=== PATIENT | female | born 1965 | race Hispanic/Latino ===

== ENCOUNTER 2017-05-15 20:12 | Emergency (ER) | payer SELFPAY ==
[~2017-05-15] VITALS: Ht 149.9 cm; Wt 49.9 kg
[~2017-05-15 20:12] MED LIST: BENTYL10 MG PO; CIPRO500 MG PO; FLAGYL500 MG PO; NORCO 5-325 TA1 EACH PO
--- NOTE | 2017-05-15 20:49 | Diagnostic Imaging Report ---
EXAMINATION: CHEST 2 VIEWS INDICATION: \S\cough, chest pain \[id number] \S\2032 \S\Y COMPARISON: None FINDINGS: PA and lateral views TUBES and LINES: None. LUNGS: Lungs are well inflated. There is no evidence of pneumonia or pulmonary edema. PLEURA: No pleural effusion or pneumothorax. HEART AND MEDIASTINUM: The cardiomediastinal silhouette is unremarkable. BONES AND SOFT TISSUES: No acute osseous lesion. Old left sixth rib fracture. Soft tissues are unremarkable. UPPER ABDOMEN: No free air under the diaphragm. IMPRESSION: No acute thoracic abnormality. Signed by: DR. Beto Euceda MD on 05/15/2017 8:45 PM
[2017-05-15 21:08] VITALS: BP 120/76
== END 2017-05-15 21:11 | disposition home or self-care (01) ==
LOC: ER 20:12
DX: R07.89 Other chest pain (principal); J20.9 Acute bronchitis, unspecified; F17.210 Nicotine dependence, cigarettes, uncomplicated
CPT/HCPCS: 71046; 93005; 99283

== ENCOUNTER 2019-12-19 22:49 | Emergency (ER) | payer SELFPAY ==
[~2019-12-19] VITALS: Ht 149.9 cm; Wt 49.9 kg
--- NOTE | 2019-12-19 22:53 | Emergency Department Note ---
History of Present Illnes History of Present Illness Chief Complaint: Abdominal Complaints History of Present Illness This is a 54 year old female presents to the ED for epigastric pain with n/v . Historian: Patient Arrival Mode: Car Onset (how long ago): day(s) Radiation: Reports non-radiation Severity: moderate Onset quality: gradual Duration (how long): day(s) Timing of current episode: constant Progression: worsening Chronicity: new Context: Reports recent illness Relieving factors: none Exacerbating factors: none Associated symptoms: Reports nausea/vomiting Treatments prior to arrival: none Past Medical/Family History Physician Review I have reviewed the patient's past medical and family history. Any updates have been documented here. Past Medical History Recent Fever: No Clinical Suspicion of Infectio: No Other Medical History: CHRONIC BACK PAIN Other Surgery: X3 Social History Smoking Cessation: Never Smoker Alcohol Use: None Any Illegal Drug Use: No Other Last Tetanus: UNKNOWN Review of Systems Review of Systems Constitutional: Reports no symptoms EENTM: Reports no symptoms Cardiovascular: Reports no symptoms Respiratory: Reports no symptoms Gastrointestinal: Reports abdominal pain, Reports nausea Genitourinary: Reports no symptoms Musculoskeletal: Reports no symptoms Integumentary: Reports no symptoms Neurological: Reports no symptoms Psychological: Reports no symptoms Endocrine: Reports no symptoms Hematological/Lymphatic: Reports no symptoms Physical Exam Related Data Allergies: Coded Allergies: No Known Allergies (Unverified , 11/20/12) Triage Vital Signs Vital Signs Date Time Temp Pulse Resp B/P (MAP) Pulse Ox O2 Delivery O2 Flow Rate FiO2 12/19/19 22:51 98.0 83 20 137/99 98 Room Air Vital signs reviewed: Yes Physical Exam CONSTITUTIONAL Constitutional: Present well-developed, Present well-nourished, Present ill appearing HENT HENT: Present normocephalic, Present atraumatic, Present oropharynx clear/moist, Present nose normal HENT L/R: Present left ext ear normal, Present right ext ear normal EYES Eyes: Reports PERRL, Reports conjunctivae normal NECK Neck: Present ROM normal PULMONARY Pulmonary: Present effort normal, Present breath sounds normal CARDIOVASCULAR Cardiovascular: Present regular rhythm, Present heart sounds normal, Present capillary refill normal, Present normal rate GASTROINTESTINAL Abdominal: Present soft, Present tender (epigastric) GENITOURINARY Genitourinary: Present exam deferred SKIN Skin: Present warm, Present dry MUSCULOSKELETAL Musculoskeletal: Present ROM normal NEUROLOGICAL Neurological: Present alert, Present oriented x 3, Present no gross motor or sensory deficits PSYCHOLOGICAL Psychological: Present mood/affect normal, Present judgement normal Results Laboratory Lab results reviewed: Yes Laboratory comments Laboratory Tests Test 12/20/19 00:43 12/19/19 23:00 12/19/19 22:59 Urine Test Negative (NEGATIVE) White Blood Count 12.80 x10e3/uL (4.8-10.8) Red Blood Count 4.96 x10e6/uL (3.6-5.1) Hemoglobin 15.7 g/dL (12.0-16.0) Hematocrit 45.8 % (34.2-44.1) Mean Corpuscular Volume 92.3 fL (81-99) Mean Corpuscular Hemoglobin 31.7 pg (28-32) Mean Corpuscular Hemoglobin Concent 34.3 g/dL (31-35) Red Cell Distribution Width 13.7 % (11.7-14.4) Platelet Count 359 x10e3/uL (140-360) Neutrophils (%) (Auto) 82.3 % (38.7-80.0) Lymphocytes (%) (Auto) 12.7 % (18.0-39.1) Monocytes (%) (Auto) 3.9 % (4.4-11.3) Eosinophils (%) (Auto) 0.2 % (0.0-6.0) Basophils (%) (Auto) 0.4 % (0.0-1.0) Neutrophils # (Auto) 10.6 (2.1-6.9) Lymphocytes # (Auto) 1.6 (1.0-3.2) Monocytes # (Auto) 0.5 (0.2-0.8) Eosinophils # (Auto) 0.0 (0.0-0.4) Basophils # (Auto) 0.1 (0.0-0.1) Absolute Immature Granulocyte (auto 0.06 x10e3/uL (0-0.1) Sodium Level 140 mmol/L (136-145) Potassium Level 4.1 mmol/L (3.5-5.1) Chloride Level 102 mmol/L (98-107) Carbon Dioxide Level 19 mmol/L (22-29) Anion Gap 23.1 mmol/L (8-16) Blood Urea Nitrogen 9 mg/dL (7-26) Creatinine 0.81 mg/dL (0.57-1.11) Estimat Glomerular Filtration Rate > 60 ML/MIN (60-) BUN/Creatinine Ratio 11 (6-25) Glucose Level 130 mg/dL (74-118) Calcium Level 9.5 mg/dL (8.4-10.2) Total Bilirubin 0.7 mg/dL (0.2-1.2) Aspartate Amino Transf (AST/SGOT) 19 IU/L (5-34) Alanine Aminotransferase (ALT/SGPT) 13 IU/L (0-55) Alkaline Phosphatase 79 IU/L (40-150) Creatine Kinase 41 IU/L (29-168) Creatine Kinase MB 0.80 ng/mL (0-5.0) Troponin I 0.021 ng/mL (0-0.300) Total Protein 8.7 g/dL (6.5-8.1) Albumin 5.1 g/dL (3.5-5.0) Globulin 3.6 g/dL (2.3-3.5) Albumin/Globulin Ratio 1.4 (0.8-2.0) Lipase 9 U/L (8-78) Ethyl Alcohol Level < 10.0 mg/dL (0.0-10.0) Urine Color Alise (YELLOW) Urine Clarity Cloudy (CLEAR) Urine pH >=9 (5 - 7) Urine Specific Cameron 1.020 (1.010-1.025) Urine Protein 2+ (NEGATIVE) Urine Glucose (UA) Negative (NEGATIVE) Urine Ketones 2+ (NEGATIVE) Urine Blood 4+ (NEGATIVE) Urine Nitrite Negative (NEGATIVE) Urine Bilirubin Small (NEGATIVE) Urine Urobilinogen 1 mg/dL (0.2 - 1) Urine Leukocyte Esterase Negative (NEGATIVE) Urine RBC 21-50 /HPF (0-5) Urine WBC 6-10 /HPF (0-5) Urine Epithelial Cells Few /LPF (NONE) Urine Bacteria Many /HPF (NONE) Urine Mucus Many (RARE) Urine Opiates Screen Positive (NEGATIVE) Urine Methadone Screen Negative (NEGATIVE) Urine Barbiturates Screen Negative (NEGATIVE) Urine Phencyclidine Screen Negative (NEGATIVE) Urine Amphetamines Screen Negative (NEGATIVE) Urine Methamphetamines Screen Negative (NEGATIVE) Urine Benzodiazepines Screen Negative (NEGATIVE) Urine Cocaine Screen Negative (NEGATIVE) Urine Cannabinoids Screen Positive (NEGATIVE) Imaging Imaging results reviewed: Yes Impressions [place] [address] Patient Name: TRACE RIVERA MR #: [id number] : 1965 Age/Sex: 54/F Req #: [id number] Adm Physician: Ordered by: EDWARD KHAN DO Report #: [id number] Location: ER Room/Bed: Procedure: CT/CT ABDOMEN/PELVIS W Exam Date: Exam Time: REPORT STATUS: Signed EXAM: CT Abdomen and Pelvis WITH contrast INDICATION: Epigastric pain COMPARISON: None. TECHNIQUE: Abdomen and pelvis were scanned utilizing a multidetector helical scanner from the lung base to the pubic symphysis after administration of IV contrast. Coronal and sagittal reformations were obtained. Routine protocol was performed. Scan was performed when during portal venous phase. IV CONTRAST: 100 mL of Isovue 370 ORAL CONTRAST: None COMPLICATIONS: None RADIATION DOSE: Total DLP: 153 mGy*cm Estimated effective dose: (DLP x 0.015 x size factor) mSv CTDIvol has been reviewed. It is below the limits set by the Radiation Protocol Committee (RPC). Dose modulation, iterative reconstruction, and/or weight based adjustment of the mA/kV was utilized to reduce the radiation dose to as low as reasonably achievable. FINDINGS: LINES and TUBES: None. LOWER THORAX: Unremarkable HEPATOBILIARY: No focal hepatic lesions. No biliary ductal dilation. GALLBLADDER: No radio-opaque stones or sludge. No wall thickening. SPLEEN: No splenomegaly. PANCREAS: No focal masses or ductal dilatation. ADRENALS: No adrenal nodules KIDNEYS/URETERS: Kidneys enhance symmetrically. No hydronephrosis. No cystic or solid mass lesions. No stones. GI TRACT: No abnormal distention or evidence of bowel obstruction. Mild colonic wall thickening, submucosal mucosal edema and mucosal hyperenhancement in the right and mid colon. Appendix is normal. PELVIC ORGANS/BLADDER: Unremarkable. LYMPH NODES: No lymphadenopathy. VESSELS: Arterial calcifications. PERITONEUM / RETROPERITONEUM: No free air or fluid. BONES: Degenerative changes. SOFT TISSUES: Unremarkable. IMPRESSION: Subtle findings suggestive of colitis. Signed by: Sherwin Holloway DO on 12/20/2019 1:29 AM Dictated By: SHERWIN HOLLOWAY DO 8 Transcribed By: STACEY on 12/20/19128 COPY TO: EDWARD KHAN DO~ Procedures 12 Lead ECG Interpretation ECG Interpretation : ECG: ECG 1 Occupational Medicine Specialist: Interpreted by ED physician Date: Dec 19, 2019 Time: 23:08 Prior ECG tracings: reviewed Rhythm: sinus rhythm Ectopy: PJC's Rate: normal BPM: 57 QRS axis: normal ST segments normal: Yes T waves normal: Yes Clinical Impression: normal ECG Assessment & Plan Medical Decision Making MDM Diff Dx : colitis, appendicitis, ischemic bowel, SBO, billiary pathology, perforated viscus, UTI , pyelonephritis, kidney stone, ACS Assessment & Plan Final Impression: (1) Colitis Depart Disposition: HOME, SELF-CARE EDWARD KHAN DO Dec 19, 2019 22:53
[2019-12-19] MEDS ORDERED: SODIUM CHLORIDE 0.9% 1000ML 1,000 ML IV STA (22:54)
[2019-12-19] MEDS ORDERED: ONDANSETRON HCL INJ 2MG/ML 2ML 2 MG/ML VIAL IV STA (23:03)
[2019-12-19] MEDS ORDERED: FAMOTIDINE 20 MG/2 ML VIAL IV STA (23:03)
[2019-12-19 23:14] LABS: BASOPHILS # (AUTO) 0.1 (0.0-0.1); BASOPHILS % 0.4 % (0.0-1.0); EOSINOPHILS % 0.2 % (0.0-6.0); HEMATOCRIT 45.8 % (34.2-44.1); HEMOGLOBIN 15.7 g/dL (12.0-16.0); LYMPHOCYTES # (AUTO) 1.6 (1.0-3.2); LYMPHOCYTES % 12.7 % (18.0-39.1); MEAN CORPUSCULAR HEMOGLOBIN 31.7 pg (28-32); MEAN CORPUSCULAR HGB CONC 34.3 g/dL (31-35); MEAN CORPUSCULAR VOLUME 92.3 fL (81-99); MONOCYTES # (AUTO) 0.5 (0.2-0.8); MONOCYTES % 3.9 % (4.4-11.3); NEUTROPHILS # (AUTO) 10.6 (2.1-6.9); NEUTROPHILS % 82.3 % (38.7-80.0); PLATELET COUNT 359 x10e3/uL (140-360); RED BLOOD COUNT 4.96 x10e6/uL (3.6-5.1); RED CELL DISTRIBUTION WIDTH 13.7 % (11.7-14.4)
[2019-12-19 23:19] LABS: AMPHETAMINES SCREEN,URINE NEGATIVE (NEGATIVE); BENZODIAZEPINES SCREEN,URINE NEGATIVE (NEGATIVE); PHENCYCLIDINE SCREEN,URINE NEGATIVE (NEGATIVE)
[2019-12-19 23:33] LABS: LIPASE 9 U/L (8-78)
[2019-12-19 23:35] LABS: ALANINE AMINOTRANSFERASE 13 IU/L (0-55); ALBUMIN 5.1 g/dL (3.5-5.0); ALBUMIN/GLOBULIN RATIO 1.4 (0.8-2.0); ALKALINE PHOSPHATASE 79 IU/L (40-150); ANION GAP 23.1 mmol/L (8-16); BLOOD UREA NITROGEN 9 mg/dL (7-26); BUN/CREATININE RATIO 11 (6-25); CALCIUM 9.5 mg/dL (8.4-10.2); CARBON DIOXIDE 19 mmol/L (22-29); CHLORIDE 102 mmol/L (98-107); CREATINE KINASE 41 IU/L (29-168); CREATININE, SERUM 0.81 mg/dL (0.57-1.11); EST GLOMERULAR FILTRATION RATE > 60 ML/MIN (60-); GLUCOSE 130 mg/dL (74-118); POTASSIUM 4.1 mmol/L (3.5-5.1); SODIUM 140 mmol/L (136-145)
--- OUTSIDE RECORDS SUMMARY | 2019-12-19 23:45 | XMS REPORT | Continuity of Care Document ---
Author Author [facility] t Organization [facility] Address [address] [place] [address] Phone Unavailable Care Team Providers Care Stonework Supervisor Name Role Phone NO, PCP PCP Unavailable Mckinley MARYphyraghu Unavailable Payers Payer Name Policy Type Policy Number Effective Date Expiration Date S ource Problems This patient has no known problems. Allergies, Adverse Reactions, Alerts Allergy Name Allergy Type Status Severity Reaction(s) Onset Date Inacti ve Date Treating Clinician Comments Source No Known Allergies DA Active U 2019-08-14 00:00:00 [facility] No Known Allergies DA Active U 2014-01-14 00:00:00 [facility] Medications Ordered Medication Name Filled Medication Name Start Date Stop Da te Current Medication? Ordering Clinician Indication Dosage Frequency Signature (SIG) Comments Components Source Ciprofloxacin Hcl (Cipro) 500 Mg Tablet, 500 Mg Oral C iprofloxacin Hcl (Cipro) 500 Mg Tablet, 500 Mg Oral 2013-03-23 00:00:00 No 500 Twice A Day [facility] Dicyclomine Hcl (Bentyl) 10 Mg Capsule, 10 Mg Oral Dic yclomine Hcl (Bentyl) 10 Mg Capsule, 10 Mg Oral 2013-03-23 00:00:00 No 10 Every 6 Hours as needed [facility] Hydrocodone Bit/Acetaminophen (Cal[place]oun 5-3 25 Tablet) 1 Each Tablet, 5 - 325 Mg Oral Hydrocodone Bit/Acetaminophen (Calhoun 5-3 25 Tablet) 1 Each Tablet, 5 - 325 Mg Oral 2013-03-23 00:00:00 No 5 Every 6 Hours as needed [facility] Metronidazole (Flagyl) 500 Mg Tablet, 500 Mg Oral Metr onidazole (Flagyl) 500 Mg Tablet, 500 Mg Oral 2013-03-23 00:00:00 No 500 Thre e Times A Day [facility] Procedures Procedure Date / Time Performed Performing Clinician [facility] e X-ray of chest, two views 2017-05-15 00:00:00 BETTE MARY [facility] Encounters Start Date/Time End Date/Time Encounter Type Admission Type Attendi [facility] Care Department Encounter ID Source 2017-05-15 20:12:00 2017-05-15 21:11:00 Departed Emergency Room ER POLO MARY [facility] [id number] [facility] Results Test Description Test Time Test Comments Results Result Comments Source - XR KNEE 3 V LT 2019-08-14 19:32:00 FAX: Facundo Abreu NP [phone] [place]: St: REG -- Name: TRACE RIVERA [facility] : 1965 Age/S: 54/F [address] [facility] Unit #: [id number] Loc: [place] [address] Phys: Facundo Abreu [employer] Acct: [id number] Dis Date: Status: REG ER PHONE #: [phone] Exam Date: 08/14/2019 1907 FAX #: [phone] Reason: FALL EXAMS: CPT CODE: [id number] XR KNEE 3 [place] [address] EXAM: Left femur, 4 views and left knee, 3 views; INFORMATION: Trauma; pain after fall 3 weeks ago; FINDINGS: Normal shape and structure of the imaged bones; no evidence of fracture or dislocation; no soft tissue abnormalities. IMPRESSION: No evidence of acute osseous trauma or other pathological changes. No radiopaque foreign body. Location code: [facility] at 1932 Reported and signed by: Raphael Stone M.D. CC: Facundo Abreu NP Technologist: KIRTI [place] Date/Time/By: 08/14/2019 (1931) : By: ChanelleGRW Orig Print D/T: S: 08/14/2019 (1934) PAGE 1 Signed Report - XR FEMUR MIN 2 VWS LT 2019-08-14 19:32:00 FAX : Facundo Abreu NP [phone] [place]: St: REG -- Name: TRACE RIVERA [facility] : 1965 Age/S: 54/F [address] [facility] Unit #: [id number] Loc: [place] [address] Phys: Facundo Abreu NP Acct: [id number] Dis Date: Status: [facility] PHONE #: [phone] Exam Date: 08/14/20191909 FAX #: [phone] Reason: FALL EXAMS: CPT CODE: [id number] XR FEMUR MIN [address] [place] [address] EXAM: Left femur, 4 views and left knee, 3 views; INFORMATION: Trauma; pain after fall 3 weeks ago; FINDINGS: Normal shape and structure of the imaged bones; no evidence of fracture or dislocation; no soft tissue abnormalities. IMPRESSION: No evidence of acute osseous trauma or other pathological changes. No radiopaque foreign body. Location code: [facility] at 1932 Reported and signed by: Raphael Stone M.D. CC: Facundo Abreu NP Technologist: KIRTI Milliganscrd Date/Time/By: 08/14/2019 (1931) : By: ChanelleGRW Orig Print D/T: S: 08/14/2019 (1934) PAGE 1 Signed Report CHEST 2 VIEWS [facility] [address] [place] [address] Patient Name: TRACE RIVERA MR #: [id number] : 1965 Age/Sex: 52/F Req #: [id number] Adm Physician: Ordered by: POLO MARY MD Report #: [id number] Location: ER Room/Bed: Procedure: [id number] DX/CHEST 2 VIEWS Exam Date: 05/15/17 Exam Time: 2032 REPORT STATUS: Signed EXAMINATION: CHEST 2 VIEWS INDICATION: COMPARISON: None FINDINGS: PA and lateral views TUBES and LINES: None. LUNGS: Lungs are well inflated. There is no evidence of pneumonia or pulmonary edema. PLEURA: No pleural effusion or pneumothorax. HEART AND MEDIASTINUM: The cardiomediastinal silhouette is unremarkable. BONES AND SOFT TISSUES: No acute osseous lesion. Old left sixth rib fracture. Soft tissues are unremarkable. UPPER ABDOMEN: No free air under the diaphragm. IMPRESSION: No acute thoracic abnormality. Signed by: DR. Beto Brewer MD on 05/15/2017 8:45 PM Dictated By: BETO BREWER MD 44 Transcribed By: STACEY on 05/15/172044 COPY TO: POLO MARY MD
[2019-12-20] MEDS ORDERED: PROMETHAZINE 12.5MG/ NACL 0.9% 12.5 MG/50 ML BAG IV ONE
[2019-12-20] MEDS ORDERED: IOPAMIDOL 370 MG/ML 200 ML INFUS..BTL INJ ONE (00:16)
[2019-12-20] MEDS ORDERED: SODIUM CHLORIDE 0.9% 50ML 50 ML ONE (00:17)
[2019-12-20 00:53] LABS: CLARITY,URINE CLOUDY (CLEAR); COLOR,URINE AMBER (YELLOW); LEUKOCYTE ESTERASE ,URINE NEGATIVE (NEGATIVE); NITRITE,URINE NEGATIVE (NEGATIVE)
[2019-12-20 00:54] LABS: BILIRUBIN,URINE SMALL (NEGATIVE); KETONES,URINE 2+ (NEGATIVE); PROTEIN,URINE DIPSTICK 2+ (NEGATIVE); URINE UROBILINOGEN 1 mg/dL (0.2 - 1)
[2019-12-20 01:07] LABS: BACTERIA,URINE MANY /HPF; EPITHELIAL CELLS,URINE FEW /LPF; RBC,URINE 21-50 /HPF (0-5)
[2019-12-20 01:08] LABS: MUCUS,URINE MANY (RARE)
--- NOTE | 2019-12-20 01:32 | Diagnostic Imaging Report ---
EXAM: CT Abdomen and Pelvis WITH contrast INDICATION: Epigastric pain COMPARISON: None. TECHNIQUE: Abdomen and pelvis were scanned utilizing a multidetector helical scanner from the lung base to the pubic symphysis after administration of IV contrast. Coronal and sagittal reformations were obtained. Routine protocol was performed. Scan was performed when during portal venous phase. IV CONTRAST: 100 mL of Isovue 370 ORAL CONTRAST: None COMPLICATIONS: None RADIATION DOSE: Total DLP: 153 mGy*cm Estimated effective dose: (DLP x 0.015 x size factor) mSv CTDIvol has been reviewed. It is below the limits set by the Radiation Protocol Committee (RPC). Dose modulation, iterative reconstruction, and/or weight based adjustment of the mA/kV was utilized to reduce the radiation dose to as low as reasonably achievable. FINDINGS: LINES and TUBES: None. LOWER THORAX: Unremarkable HEPATOBILIARY: No focal hepatic lesions. No biliary ductal dilation. GALLBLADDER: No radio-opaque stones or sludge. No wall thickening. SPLEEN: No splenomegaly. PANCREAS: No focal masses or ductal dilatation. ADRENALS: No adrenal nodules KIDNEYS/URETERS: Kidneys enhance symmetrically. No hydronephrosis. No cystic or solid mass lesions. No stones. GI TRACT: No abnormal distention or evidence of bowel obstruction. Mild colonic wall thickening, submucosal mucosal edema and mucosal hyperenhancement in the right and mid colon. Appendix is normal. PELVIC ORGANS/BLADDER: Unremarkable. LYMPH NODES: No lymphadenopathy. VESSELS: Arterial calcifications. PERITONEUM / RETROPERITONEUM: No free air or fluid. BONES: Degenerative changes. SOFT TISSUES: Unremarkable. IMPRESSION: Subtle findings suggestive of colitis. Signed by: Sherwin Holloway DO on 12/20/2019 1:29 AM
[2019-12-20 02:13] VITALS: BP 142/93
== END 2019-12-20 02:53 | disposition home or self-care (01) ==
LOC: ER 23:10
DX: R10.13 Epigastric pain (principal); R11.2 Nausea with vomiting, unspecified; K52.9 Noninfective gastroenteritis and colitis, unspecified
CPT/HCPCS: 36415; 74177; 80053; 80307; 80320; 81001; 81025; 82550; 82553; 83690; 84484; 85025; 93005; 99284; J2405; J2550; J7030; Q9967

== ENCOUNTER 2020-01-18 16:39 | Emergency (ER) | payer SELFPAY ==
[~2020-01-18] VITALS: Ht 149.9 cm; Wt 49.9 kg
--- OUTSIDE RECORDS SUMMARY | 2020-01-18 17:46 | XMS REPORT | Continuity of Care Document ---
Author Author [facility] t Organization [facility] Address [address] [place] [address] Phone Unavailable Care Team Providers Care Youth Minister Name Role Phone NO, PCP PCP Unavailable EDWARD KHAN Attphyraghu Unavailable Mckinley MARY Attphys Unavailable Payers Payer Name Policy Type Policy Number Effective Date Expiration Date S ource Problems Condition Name Condition Details Condition Category Status Onset Date Resolution Date Last Treatment Date Treating Clinician Comments Source Problem Condition Active [facility] Allergies, Adverse Reactions, Alerts Allergy Name Allergy Type Status Severity Reaction(s) Onset Date Inacti ve Date Treating Clinician Comments Source No Known Allergies DA Active U 2019-08-14 00:00:00 [facility] No Known Allergies DA Active U 2014-01-14 00:00:00 [facility] Social History Social Habit Start Date Stop Date Quantity Comments Source Sex Assigned At 1965 00:00:00 1965 00:[birth year]:00 Female [facility] Medications Ordered Medication Name Filled Medication Name Start Date Stop Da te Current Medication? Ordering Clinician Indication Dosage Frequency Signature (SIG) Comments Components Source Ciprofloxacin Hcl (Cipro) 500 Mg TABLET Ciprofloxacin Hcl (C ipro) 500 Mg TABLET 2013-03-23 00:00:00 No 500 Twice A Day [facility] Dicyclomine Hcl (Bentyl) 10 Mg CAPSULE Dicyclomine Hcl (Bentyl) 10 Mg CAPSULE 2013-03-23 00:00:00 No 10 Every 6 Hours as nee ded [facility] Hydrocodone Bit/Acetaminophen (Broadway 5-325 Tablet) 1 E ach TABLET Hydrocodone Bit/Acetaminophen (Broadway 5-325 Tablet) 1 Each TABLET 2013-03-23 00: 00:00 No Every 6 Hours as needed C [facility] Metronidazole (Flagyl) 500 Mg TABLET Metronidazole (Flagyl) 500 Mg TABLET 2013-03-23 00:00:00 No 500 Three Times A Day [facility] Vital Signs Vital Name Observation Time Observation Value Comments Source Body Temperature 2019-12-20 02:13:00 98.0 [degF] [facility] Weight 2019-12-19 22:51:00 110 [lb_av] [facility] BMI (Body Mass Index) 2019-12-19 22:51:00 22.2 kg/m2 [facility] Procedures Procedure Date / Time Performed Performing Clinician [facility] e Computed tomography of abdomen and pelvis with contrast 00:00:00 [facility] Plan of Care Planned Activity Planned Date Details Comments Source Instructions Abdominal Pain - Adult [facility] Encounters Start Date/Time End Date/Time Encounter Type Admission Type Attendi [facility] Facility Care Department Encounter ID Source 2017-05-15 20:12:00 2017-05-15 21:11:00 Departed Emergency Room ER POLO MARY [facility] [id number] [facility] Results Test Description Test Time Test Comments Results Result Comments Source URINALYSIS COMPLETE 2019-12-21 15:24:00 Test Item UA COLOR (test code = COLU) YELLOW YELLOW UA APPEARANCE (test code = APPU) CLEAR CLEAR UA GLUCOSE DIPSTICK (test code = DGLUU) NEGATIVE mg/dL NEGATIVE UA BILIRUBIN DIPSTICK (test code = BILU) NEGATIVE mg/dL NEGATIVE UA KETONE DIPSTICK (test code = KETU) 40 (2+) mg/dL NEGATIVE A UA SPECIFIC GRAVITY (test code = SGU) 1.018 1.001-1.035 UA BLOOD DIPSTICK (test code = DONA) 1.0 mg/dL (3+) mg/dL NEGATIVE A UA PH DIPSTICK (test code = CAITLYN) 6.5 5.0-8.0 UA PROTEIN DIPSTICK (test code = PROU) NEGATIVE mg/dL NEGATIVE UA UROBILINIOGEN DIPSTICK (test code = URO) Normal mg/dL NEGATIVE UA NITRITE DIPSTICK (test code = PETE) NEGATIVE NEGATIVE UA LEUKOCYTE ESTERASE W REFLEX (test code = LEUUR) NEGATIVE Kelle/uL NEGATIVE UA WBC (test code = WBCU) 0-5 per HPF 0-5 UA RBC (test code = RBCU) 3-5 #/HPF 0-5 UA EPITHELIAL CELLS (test code = EPIU) MOD per HPF FEW UA BACTERIA (test code = BACU) NONE SEEN #/HPF NONE UA MUCUS (test code = MUCU) FEW #/LPF FEW Urine Source? Clean CatchBASIC METABOLIC [id number] 14:27:00* Test Item Value Reference Range Interpretation Comments SODIUM (test code = NA) 139 mmol/L 136-145 N POTASSIUM (test code = K) 3.1 mmol/L 3.5-5.1 L CHLORIDE (test code = CL) 106.0 mmol/L 98-107 N CARBON DIOXIDE (test code = CO2) 23.0 mmol/L 21-32 N ANION GAP (test code = GAP) 13.1 10-20 N GLUCOSE (test code = GLU) 134 mg/dL 74-106 H BLOOD UREA NITROGEN (test code = BUN) 11 mg/dL 7-18 N GLOMERULAR FILTRATION RATE (test code = GFR) > 60 mL/min >=60 Estimated GFR by using Modified MDRD formula.Chronic kidney disease is defined as either kidney damageor GFR <60 mL/min/1.73 m2 for >3 months. CREATININE (test code = CREAT) 0.80 mg/dL 0.55-1.02 N Note change in reference range due to change in reagent. BUN/CREATININE RATIO (test code = BUN/CREA) 14.0 10-20 N CALCIUM (test code = CA) 9.2 mg/dL 8.5-10.1 N HEPATIC FUNCTION [id number] 14:27:00* Test Item Value Reference Range Interpretation Comments TOTAL PROTEIN (test code = PROT) 7.8 gram/dL 6.4-8.2 N ALBUMIN (test code = ALB) 4.2 g/dL 3.4-5.0 N GLOBULIN (test code = GLOB) 3.6 gram/dL 2.7-4.2 N ALBUMIN/GLOBULIN RATIO (test code = A/G) 1.2 0.75-1.50 N BILIRUBIN TOTAL (test code = BILT) 0.60 mg/dL 0.0-1.0 N BILIRUBIN DIRECT (test code = BILD) 0.16 mg/dL 0.0-0.20 N SGOT/AST (test code = AST) 16 IUnit/L 15-37 N SGPT/ALT (test code = ALT) 16 IUnit/L 12-78 N ALKALINE PHOSPHATASE TOTAL (test code = ALKP) 81 IUnit/L 45-117 N Note change in reference range due to change in reagent. [id number] 14:27:00* Test Item Value Reference Range Interpretation Comments LIPASE (test code = LIP) 57 U/L 73.0-393.0 L HCG SERUM [id number] 14:27:00* Test Item Value Reference Range Interpretation Comments HCG SERUM QUAL (test code = HCGQL) NEGATIVE NEGATIVE This HCGQL test is NOT applicable for MALE patients.Check with nurse about probable order error.If Tumor Marker Test needed, nurse should order test "HCGTU"(Test #550.41989) BASIC METABOLIC [id number] 14:22:00* Test Item Value Reference Range Interpretation Comments SODIUM (test code = NA) 139 mmol/L 136-145 N POTASSIUM (test code = K) 3.1 mmol/L 3.5-5.1 L CHLORIDE (test code = CL) 106.0 mmol/L 98-107 N CARBON DIOXIDE (test code = CO2) mmol/L 21-32 ANION GAP (test code = GAP) 10-20 GLUCOSE (test code = GLU) mg/dL 74-106 BLOOD UREA NITROGEN (test code = BUN) mg/dL 7-18 GLOMERULAR FILTRATION RATE (test code = GFR) mL/min >=60 CREATININE (test code = CREAT) mg/dL 0.55-1.02 BUN/CREATININE RATIO (test code = BUN/CREA) 10-20 CALCIUM (test code = CA) mg/dL 8.5-10.1 HEPATIC FUNCTION [id number] 14:22:00* Test Item Value Reference Range Interpretation Comments TOTAL PROTEIN (test code = PROT) gram/dL 6.4-8.2 ALBUMIN (test code = ALB) g/dL 3.4-5.0 GLOBULIN (test code = GLOB) gram/dL 2.7-4.2 ALBUMIN/GLOBULIN RATIO (test code = A/G) 0.75-1.50 BILIRUBIN TOTAL (test code = BILT) mg/dL 0.0-1.0 BILIRUBIN DIRECT (test code = BILD) mg/dL 0.0-0.20 SGOT/AST (test code = AST) IUnit/L 15-37 SGPT/ALT (test code = ALT) IUnit/L 12-78 ALKALINE PHOSPHATASE TOTAL (test code = ALKP) IUnit/L 45-117 [id number] 14:22:00* Test Item Value Reference Range Interpretation Comments LIPASE (test code = LIP) U/L 73.0-393.0 HCG SERUM [id number] 14:22:00* Test Item Value Reference Range Interpretation Comments HCG SERUM QUAL (test code = HCGQL) NEGATIVE NEGATIVE This HCGQL test is NOT applicable for MALE patients.Check with nurse about probable order error.If Tumor Marker Test needed, nurse should order test "HCGTU"(Test #550.48794) BASIC METABOLIC [id number] 14:15:00* Test Item Value Reference Range Interpretation Comments SODIUM (test code = NA) mmol/L 136-145 POTASSIUM (test code = K) mmol/L 3.5-5.1 CHLORIDE (test code = CL) mmol/L 98-107 CARBON DIOXIDE (test code = CO2) mmol/L 21-32 ANION GAP (test code = GAP) 10-20 GLUCOSE (test code = GLU) mg/dL 74-106 BLOOD UREA NITROGEN (test code = BUN) mg/dL 7-18 GLOMERULAR FILTRATION RATE (test code = GFR) mL/min >=60 CREATININE (test code = CREAT) mg/dL 0.55-1.02 BUN/CREATININE RATIO (test code = BUN/CREA) 10-20 CALCIUM (test code = CA) mg/dL 8.5-10.1 HEPATIC FUNCTION [id number] 14:15:00* Test Item Value Reference Range Interpretation Comments TOTAL PROTEIN (test code = PROT) gram/dL 6.4-8.2 ALBUMIN (test code = ALB) g/dL 3.4-5.0 GLOBULIN (test code = GLOB) gram/dL 2.7-4.2 ALBUMIN/GLOBULIN RATIO (test code = A/G) 0.75-1.50 BILIRUBIN TOTAL (test code = BILT) mg/dL 0.0-1.0 BILIRUBIN DIRECT (test code = BILD) mg/dL 0.0-0.20 SGOT/AST (test code = AST) IUnit/L 15-37 SGPT/ALT (test code = ALT) IUnit/L 12-78 ALKALINE PHOSPHATASE TOTAL (test code = ALKP) IUnit/L 45-117 [id number] 14:15:00* Test Item Value Reference Range Interpretation Comments LIPASE (test code = LIP) U/L 73.0-393.0 HCG SERUM [id number] 14:15:00* Test Item Value Reference Range Interpretation Comments HCG SERUM QUAL (test code = HCGQL) NEGATIVE NEGATIVE This HCGQL test is NOT applicable for MALE patients.Check with nurse about probable order error.If Tumor Marker Test needed, nurse should order test "HCGTU"(Test #550.64871) CBC W/O [id number] 13:38:00* Test Item Value Reference Range Interpretation Comments WHITE BLOOD CELL (test code = WBC) 16.1 K/mm3 4.5-12.5 H RED BLOOD CELL (test code = RBC) 4.78 mill/mm3 3.7-5.2 N HEMOGLOBIN (test code = HGB) 15.5 gram/dL 11.5-15.5 N HEMATOCRIT (test code = HCT) 44.6 % 36.0-46.0 N MEAN CELL VOLUME (test code = MCV) 93.3 fL 80-98 N MEAN CELL HGB (test code = MCH) 32.4 picogram 27.0-33.0 N MEAN CELL HGB CONCETRATION (test code = MCHC) 34.8 gram/dL 33.0-36. 0 N RED CELL DISTRIBUTION WIDTH (test code = RDW) 14.0 % 11.6-16. 2 N PLATELET COUNT (test code = PLT) 340 K/mm3 150-450 N MEAN PLATELET VOLUME (test code = MPV) 10.0 fL 6.7-11.0 N - US ABDOMEN [id number] 13:19:00 Name: TRACE RIVERA [facility] : 1965 Age/S: 54 / F [address] [facility] Unit #: [id number] Loc: NATHAN Rdz [address] Phys: Cy Young DO Acct: [id number] Dis Date: Status: REG ER PHONE #: [phone] Exam Date: 12/21/2019 1258 FAX #: [phone] Reason: Abdominal Pain EXAMS: CPT CODE: [id number] US ABDOMEN LTD 64539 HISTORY: Abdominal pain. COMPARISON: None available. Location: [facility]. The liver is normal in echogenicity and texture without parenchymal mass or lesions measuring 15.8 cm in length. No intra or extrahepatic biliary ductal dilatation. CBD is normal at 3.9 mm. Main portal vein is patent with hepatopedal flow and normal spectral waveform. Gallbladder is without gallstones. No pericholecystic fluid or wall thickening. No ascites. Right kidney is free from hydronephrosis and calyceal stones. Normal echogenicity and texture. Right kidney measured 9.8 cm in length. Visualized portions of the IVC, aorta and pancreas are normal however imaged incompletely. IMPRESSION: No gallstones. Unremarkable liver and right kidney. at 7848 Repor pasha and signed by: Aj Latif M.D. CC: Cy Young DO Technologist: TRACE SOTELO RDMS Trnscb Date/Time: 12/21/2019 (0081) [email or web address] Orig Print D/T: S: 12/21/2019 1326) Probe: PAGE [address] ABDOMEN/PELVIS [id number] 01:23:00 [place] [address] Patient Name: TRACE RIVERA MR #: [id number] : 1965 Age/Sex: 54/F Req #: [id number] Adm Physician: Ordered by: EDWARD KHAN DO Report #: [id number] Location: ER Room/Bed: Procedure: [id number] CT/CT ABDOMEN/ PELVIS W Exam Date: 12/19/19 Exam Time: 2359 REPORT STATUS: Signed EXAM: CT Abdomen and Pelvis WITH contrast INDICATION: Epigastric pain COMPARISON: Non e. TECHNIQUE: Abdomen and pelvis were scanned utilizing a multidetector helica l scanner from the lung base to the pubic symphysis after administration of IV contrast. Coronal and sagittal reformations were obtained. Routine protocol w as performed. Scan was performed when during portal venous phase. I V CONTRAST: 100 mL of Isovue 370 ORAL CONTRAST: None COM PLICATIONS: None RADIATION DOSE: Total DLP: 153 mGy*cm Estima pasha effective dose: (DLP x 0.015 x size factor) mSv CTDIvol has been revi ewed. It is below the limits set by the Radiation Protocol Committee (RPC). Dose modulation, iterative reconstruction, and/or weight based adjustment of the mA/kV was utilized to reduce the radiation dose to as low as reasonably achievable. FINDINGS: LINES and TUBES: None. LOWER THORAX: Un remarkable HEPATOBILIARY: No focal hepatic lesions. No biliary ductal dilation. GALLBLADDER: No radio-opaque stones or sludge. No wall thickeni ng. SPLEEN: No splenomegaly. PANCREAS: No focal masses or ductal dila tation. ADRENALS: No adrenal nodules KIDNEYS/URETERS: Kidneys en starla symmetrically. No hydronephrosis. No cystic or solid mass lesions. No stones. GI TRACT: No abnormal distention or evidence of bowel obstruction. Mild colonic wall thickening, submucosal mucosal edema and mucosal hyperenhan cement in the right and mid colon. Appendix is normal. PELVIC ORGANS/LEANN DDER: Unremarkable. LYMPH NODES: No lymphadenopathy. VESSELS: Arterial calcifications. PERITONEUM / RETROPERITONEUM: No free air or fluid. BONES: Degenerative changes. SOFT TISSUES: Unremarkable. IMPRESSION: Subtle findings suggestive of colitis. Signed by: Mabel Amezquita DO on 12/20/2019 1:29 AM Dictated By: NISHI AMEZQUITA DO 8 Transcribed By: STACEY on 12/20/19128 COPY TO: EDWARD KHAN DO Urine human chorionic gonadotropin (hCG) [id number] 00:43:00* Test Item Value Reference Range Interpretation Comments Urine Test (test code = 2106-3) NEGATIVE NEGATIVE [facility] leukocytes automated count (number/volume)2019-12-19 23:00:00* Test Item Value Reference Range Interpretation Comments White Blood Count (test code = 6690-2) 12.80 4.8-10.8 [facility] erythrocytes automated count (number/volume)2019-12-19 23:00:00* Test Item Value Reference Range Interpretation Comments Red Blood Count (test code = 789-8) 4.96 3.6-5.1 [facility] measurement (moles/volume)2019-12-19 23:00:00* Test Item Value Reference Range Interpretation Comments Hemoglobin (test code = 87479-8) 15.7 12.0-16.0 [facility] hematocrit (volume fraction)2019-12-19 23:00:00* Test Item Value Reference Range Interpretation Comments Hematocrit (test code = 4544-3) 45.8 34.2-44.1 [facility] erythrocyte mean corpuscular [id number] 23:00:00* Test Item Value Reference Range Interpretation Comments Mean Corpuscular Volume (test code = 787-2) 92.3 81-99 [facility] eryth[facility] mean corpuscular hemoglobin (mass per erythrocyte)2019-12-19 23:00:00* Test Item Value Reference Range Interpretation Comments Mean Corpuscular Hemoglobin (test code = 785-6) 31.7 28-32 [facility] eryth[facility] mean corpuscular hemoglobin concentration measurement (mass/volume)2019-12-19 23:00:00* Test Item Value Reference Range Interpretation Comments Mean Corpuscular Hemoglobin Concent (test code = 786-4) 34.3 31-35 [facility] Central[facility] [id number] 23:00:00* Test Item Value Reference Range Interpretation Comments Red Cell Distribution Width (test code = 27498-3) 13.7 11.7 -14.4 [facility] platelet count (count/volume)2019-12-19 23:00:00* Test Item Value Reference Range Interpretation Comments Platelet Count (test code = 777-3) 359 140-360 [facility] segmented neutrophil count as percentage of total [id number] 23:00:00* Test Item Value Reference Range Interpretation Comments Neutrophils (%) (Auto) (test code = 77573-0) 82.3 38.7-80.0 [facility] lymphocyte count as percentage ot total [id number] 23:00:00* Test Item Value Reference Range Interpretation Comments Lymphocytes (%) (Auto) (test code = 736-9) 12.7 18.0-39.1 [facility] monocyte count as percentage of total [id number] 23:00:00* Test Item Value Reference Range Interpretation Comments Monocytes (%) (Auto) (test code = 5905-5) 3.9 4.4-11.3 [facility] eosinophil count as percentage of total [id number] 23:00:00* Test Item Value Reference Range Interpretation Comments Eosinophils (%) (Auto) (test code = 713-8) 0.2 0.0-6.0 [facility] basophil count as percentage of total [id number] 23:00:00* Test Item Value Reference Range Interpretation Comments Basophils (%) (Auto) (test code = 706-2) 0.4 0.0-1.0 [facility] CentralFluoroscopic procedure less than one hour [id number] 23:00:00* Test Item Value Reference Range Interpretation Comments IM GRANULOCYTES % (test code = IM GRANULOCYTES %) 0.5 0.0- 1.0 [facility] neutrophil count 2019-12-19 23:00:00* Test Item Value Reference Range Interpretation Comments Neutrophils # (Auto) (test code = 751-8) 10.6 2.1-6.9 [facility] lymphocytes count (number/volume) 2019-12-19 23:00:00* Test Item Value Reference Range Interpretation Comments Lymphocytes # (Auto) (test code = 95068-2) 1.6 1.0-3.2 [facility] monocytes automated count (number/volume)2019-12-19 23:00:00* Test Item Value Reference Range Interpretation Comments Monocytes # (Auto) (test code = 742-7) 0.5 0.2-0.8 [facility] blood eosinophil count 2019-12-19 23:00:00* Test Item Value Reference Range Interpretation Comments Eosinophils # (Auto) (test code = 711-2) 0.0 0.0-0.4 [facility] blood basophil count (count/volume)2019-12-19 23:00:00* Test Item Value Reference Range Interpretation Comments Basophils # (Auto) (test code = 704-7) 0.1 0.0-0.1 [facility] CentralFluoroscopic procedure less than one hour [id number] 23:00:00* Test Item Value Reference Range Interpretation Comments Absolute Immature Granulocyte (auto (mariel t code = Absolute Immature Granulocyte (auto) 0.06 0-0.1 [facility] sodium measurement (moles/volume)2019-12-19 23:00:00* Test Item Value Reference Range Interpretation Comments Sodium Level (test code = 2951-2) 140 136-145 [facility] or plasma potassium measurement (moles/volume)2019-12-19 23:00:00* Test Item Value Reference Range Interpretation Comments Potassium Level (test code = 2823-3) 4.1 3.5-5.1 [facility] or plasma chloride measurement (moles/volume)2019-12-19 23:00:00* Test Item Value Reference Range Interpretation Comments Chloride Level (test code = 2075-0) 102 98-107 [facility] or plasma carbon dioxide, total measurement (moles/volume)2019-12-19 23:00:00* Test Item Value Reference Range Interpretation Comments Carbon Dioxide Level (test code = 2028-9) 19 22-29 [facility] or plasma anion [id number] 23:00:00* Test Item Value Reference Range Interpretation Comments Anion Gap (test code = 94007-0) 23.1 8-16 [facility] or plasma urea nitrogen measurement (mass/volume)2019-12-19 23:00:00* Test Item Value Reference Range Interpretation Comments Blood Urea Nitrogen (test code = 3094-0) 9 7-26 [facility] or plasma creatinine measurement (mass/volume)2019-12-19 23:00:00* Test Item Value Reference Range Interpretation Comments Creatinine (test code = 2160-0) 0.81 0.57-1.11 [facility] or plasma urea nitrogen/creatinine mass [id number] 23:00:00* Test Item Value Reference Range Interpretation Comments BUN/Creatinine Ratio (test code = 3097-3) 11 6-25 [facility] Central[facility] glomerular filtration rate (GFR) garmsfqkzaubx4820-92-35 23:00:00* Test Item Value Reference Range Interpretation Comments Estimat Glomerular Filtration Rate (test code = 870728308) > 60 >60 Ranges were taken from the National Kidney Disease Education Program and the [facility] literature.Reference ranges:60 or greater: Jpmwyx04-31 ( for 3 consecutive months): Chronic kidney disease 15 or less: Kidney failureMid[facility] CentralGlucose izdffernkht9624-48-36 23:00:00* Test Item Value Reference Range Interpretation Comments Glucose Level (test code = IMD0700) 130 74-118 [facility] or plasma calcium measurement (mass/volume)2019-12-19 23:00:00* Test Item Value Reference Range Interpretation Comments Calcium Level (test code = 03565-6) 9.5 8.4-10.2 [facility] or plasma total bilirubin measurement (mass/volume)2019-12-19 23:00:00* Test Item Value Reference Range Interpretation Comments Total Bilirubin (test code = 1975-2) 0.7 0.2-1.2 [facility] CentralFluoroscopic procedure less than one hour [id number] 23:00:00* Test Item Value Reference Range Interpretation Comments Aspartate Amino Transf (AST/SGOT) (test code = Aspartate Amino Transf (AST/SGOT)) 19 5-34 [facility] or plasma alanine aminotransferase measurement (enzymatic activity/volume)2019-12-19 23:00:00* Test Item Value Reference Range Interpretation Comments Alanine Aminotransferase (ALT/SGPT) (test code = 1742-6) 13 0-55 [facility] or plasma protein measurement (mass/volume)2019-12-19 23:00:00* Test Item Value Reference Range Interpretation Comments Total Protein (test code = 2885-2) 8.7 6.5-8.1 [facility] or plasma albumin measurement (mass/volume)2019-12-19 23:00:00* Test Item Value Reference Range Interpretation Comments Albumin (test code = 1751-7) 5.1 3.5-5.0 [facility] Central[facility]asma globulin measurement (mass/volume) 2019-12-19 23:00:00* Test Item Value Reference Range Interpretation Comments Globulin (test code = 47611-5) 3.6 2.3-3.5 [facility] or plasma albumin/globulin mass [id number] 23:00:00* Test Item Value Reference Range Interpretation Comments Albumin/Globulin Ratio (test code = 1759-0) 1.4 0.8-2.0 [facility] or plasma alkaline phosphatase measurement (enzymatic activity/volume)2019-12-19 23:00:00* Test Item Value Reference Range Interpretation Comments Alkaline Phosphatase (test code = 6768-6) 79 40-150 [facility] or plasma creatine kinase measurement (enzymatic activity/volume)2019-12-19 23:00:00* Test Item Value Reference Range Interpretation Comments Creatine Kinase (test code = 2157-6) 41 29-168 [facility] or plasma creatine kinase MB measurement (mass/volume)2019-12-19 23:00:00* Test Item Value Reference Range Interpretation Comments Creatine Kinase MB (test code = 95389-5) 0.80 0-5.0 [facility] CentralTroponin I measurement by highly sensitive enzyme diqfkjntggl9908-49-68 23:00:00* Test Item Value Reference Range Interpretation Comments Troponin I (test code = 13683-2) 0.021 0-0.300 [facility] or plasma lipase measurement (enzymatic activity/volume)2019-12-19 23:00:00* Test Item Value Reference Range Interpretation Comments Lipase (test code = 3040-3) 9 8-78 [facility] or plasma ethanol measurement (mass/volume)2019-12-19 23:00:00* Test Item Value Reference Range Interpretation Comments Ethyl Alcohol Level (test code = 5643-2) < 10.0 0.0-10.0 [facility] Central[facility]rine color arnpujxxxkkms0554-74-57 22:59:00* Test Item Value Reference Range Interpretation Comments Urine Color (test code = 5778-6) EKATERINA YELLOW [facility] CentralUrine [id number] 22:59:00* Test Item Value Reference Range Interpretation Comments Urine Clarity (test code = 71434-6) CLOUDY CLEAR [facility] Urine by Test strip 2019-12-19 22:59:00* Test Item Value Reference Range Interpretation Comments Urine Specific [place] (test code = 5811-5) 1.020 1.010-1.02 5 [facility] by automated test [id number] 22:59:00* Test Item Value Reference Range Interpretation Comments Urine pH (test code = 70130-3) >=9 5-7 [facility] leukocyte esterase detection by trrzynpv2629-93-17 22:59:00* Test Item Value Reference Range Interpretation Comments Urine Leukocyte Esterase (test code = 5799-2) NEGATIVE NEGATIVE [facility] nitrite irfvklfqs8604-00-30 22:59:00* Test Item Value Reference Range Interpretation Comments Urine Nitrite (test code = 88369-2) NEGATIVE NEGATIVE [facility] protein measurement by test strip (mass/volume)2019-12-19 22:59:00* Test Item Value Reference Range Interpretation Comments Urine Protein (test code = 5804-0) 2+ NEGATIVE [facility] glucose byhnuogqn8485-75-33 22:59:00* Test Item Value Reference Range Interpretation Comments Urine Glucose (UA) (test code = 2349-9) NEGATIVE NEGATIVE [facility] ketones detection by automated test othxr3988-67-47 22:59:00* Test Item Value Reference Range Interpretation Comments Urine Ketones (test code = 65279-0) 2+ NEGATIVE [facility] opiates screening [id number] 22:59:00* Test Item Value Reference Range Interpretation Comments Urine Opiates Screen (test code = 28206-6) POSITIVE NEGATIVE ALL TESTS PERFORMED MANUALLY ON Piece of Cake TOX/SEE TEST This test provides only a sc reen. Positive results should be repeated by a confirmatory test.[facility] Central[facility]bit[facility] screen, [id number] 22:59:00* Test Item Value Reference Range Interpretation Comments Urine Barbiturates Screen (test code = 678626349) NEGATIVE NEGA TIVE [facility] phencyclidine detection by screening nbkjol6790-46-48 22:59:00* Test Item Value Reference Range Interpretation Comments Urine Phencyclidine Screen (test code = 26010-6) NEGATIVE NEGAT MARQUES [facility] amphetamines detection by screen method > 1000 [id number]/jY0326-04-57 22:59:00* Test Item Value Reference Range Interpretation Comments Urine Amphetamines Screen (test code = 59690-1) NEGATIVE NEGATI VE [facility] CentralFluoroscopic procedure less than one hour aeuegsge0415-43-67 22:59:00* Test Item Value Reference Range Interpretation Comments Urine Methamphetamines Screen (test code = Urine Metha mphetamines Screen) NEGATIVE NEGATIVE [facility] benzodiazepines detection by screening wbkniu6405-84-74 22:59:00* Test Item Value Reference Range Interpretation Comments Urine Benzodiazepines Screen (test code = 47527-9) NEGATIVE NEG ATIVE [facility] cocaine measurement (mass/volume) 2019-12-19 22:59:00* Test Item Value Reference Range Interpretation Comments Urine Cocaine Screen (test code = 3398-5) NEGATIVE NEGATIVE [facility] cannabinoids detection by screening dtqxld6111-00-93 22:59:00* Test Item Value Reference Range Interpretation Comments Urine Cannabinoids Screen (test code = 88000-6) POSITIVE NEGATI VE THESE RESULTS ARE FOR MEDICAL TREATMENT ONLYTHIS REPORT CONTAINS UNCONFIR MED SCREENING RESULTS*POSITIVE RESULTS WILL BE CONFIRMED BY REFERENCE LAB UPON R EQUEST CUT-OFFDRUG CLASS CONCENTRATION ng/mLAmphetamines 1000Methamphetamines 1000Cocaine 300Opiate 300Phencyc lidine 25Cannabinoid 50Barbiturates 300Benzodiazepine 300Methadone 300 This test p rovides only a screen. Positive results should be repeated by a confirmatory mariel t.[facility] methadone tipnrg0303-95-98 22:59:00* Test Item Value Reference Range Interpretation Comments Urine Methadone Screen (test code = 51066-3) NEGATIVE NEGATIVE THESE RESULTS ARE FOR MEDICAL TREATMENT ONLYTHIS REPORT CONTAINS UNCONFIR MED SCREENING RESULTS*POSITIVE RESULTS WILL BE CONFIRMED BY REFERENCE LAB UPON R EQUEST CUT-OFFDRUG CLASS CONCENTRATION ng/mLAmphetamines 1000Methamphetamines 1000Cocaine Metabolite 300Opiate 300Phencyc lidine 25Cannabinoid 50Barbiturates 300Benzodiazepine 300Methadone 300[facility] urobilinogen measurement by test strip (mass/volume)2019-12-19 22:59:00* Test Item Value Reference Range Interpretation Comments Urine Urobilinogen (test code = 60303-3) 1 0.2-1 [facility] total bilirubin measurement (mass/volume)2019-12-19 22:59:00* Test Item Value Reference Range Interpretation Comments Urine Bilirubin (test code = 1978-6) SMALL NEGATIVE [facility] erythrocytes qbylazxnd7496-50-87 22:59:00* Test Item Value Reference Range Interpretation Comments Urine Blood (test code = 69634-8) 4+ NEGATIVE [facility] CentralAutomated urine sediment leukocyte count by microscopy (number/high power field)2019-12-19 22:59:00* Test Item Value Reference Range Interpretation Comments Urine WBC (test code = 5821-4) 6-10 0-5 [facility] CentralErythrocytes detection in urine sediment by light lrznkveufd6230-65-70 22:59:00* Test Item Value Reference Range Interpretation Comments Urine RBC (test code = 33193-9) 21-50 0-5 [facility] CentralBacteria detection in urine sediment by light ijxoslakiq2657-47-98 22:59:00* Test Item Value Reference Range Interpretation Comments Urine Bacteria (test code = 09449-8) MANY NONE [facility] CentralEpithelial cells detection in urine sediment by light ivghmyodge9251-29-11 22:59:00* Test Item Value Reference Range Interpretation Comments Urine Epithelial Cells (test code = 73835-9) FEW NONE [facility] CentralMucus detection in urine sediment by light qczchcwpnw1690-11-48 22:59:00* Test Item Value Reference Range Interpretation Comments Urine Mucus (test code = 8247-9) MANY RARE [facility] XR KNEE 3 V [id number] 19:32:00 FAX: Facundo Abreu NP [phone] Rock: B St: REG Name: TRACE ARAMBULA [facility] : [birth year] Age/S: 54/F [address] Unit #: [id number] Loc: [place] [address] Phys: Facundo Abreu NP Acct: [id number] Dis Date: Status: REG ER PHONE #: [phone] Exam Date: 08/14/20191903 FAX #: [phone] Reason: FALL EXAMS: CPT CODE: [id number] XR KNEE 3 [place] LT [address] EXAM: Left femur, 4 views and left knee, 3 views; INFORMATION: Trauma; pain after fall 3 weeks ago; FINDINGS: Normal shape and structure of the imaged bones; no evidence of fracture or dislocation; no soft tissue abnormalities. IMPRESSION: No evidence of acute osseous trauma or othe r pathological changes. No radiopaque foreign body. Lo cation code: [facility] at 193 Reported and signed by: Raphael Stone M.D. CC: Facundo Abreu NP Technologist: KIRTI Mill[place]markus Date/Time/By: 0 (1931) : By: ChanelleGRW Orig Print D/T: S: 08/14/2019 (1934) PAGE 1 Signed Report - XR FEMUR MIN 2 VWS [id number] 19:32:00 FAX: Facundo Abreu NP [phone] Rock: [address]: REG Name: TRACE ARAMBULA [facility] : [birth year] Age/S: 54/F [place] Unit #: [id number] Loc: [place] [address] Phys: Facundo Abreu LASER/ELECTRO OPTICS TECHNICIAN Acct: [id number] Dis Date: Status: REG ER PHONE #: [phone] Exam Date: 08/14/20191909 FAX #: [phone] Reason: FALL EXAMS: CPT CODE: [id number] XR FEMUR MIN [address] [place] [address] EXAM: Left femur, 4 views and left knee, 3 views; INFORMATION: Trauma; pain after fall 3 weeks ago; FINDINGS: Normal shape and structure of the imaged bones; no evidence of fracture or dislocation; no soft tissue abnormalities. IMPRESSION: No evidence of acute osseous trauma or othe r pathological changes. No radiopaque foreign body. Lo cation code: [facility] at 1932 Reported and signed by: Raphael Stone M.D. CC: Facundo Abreu NP Technologist: KIRTI [place] Date/Time/By: 0 (1931) : By: ChanelleGRW Orig Print D/T: S: 08/14/2019 (1934) PAGE 1 Signed Report CHEST 2 VIEWS [place] [address] Patient Name: TRACE RIVERA MR #: [id number] : 1965 Age/Sex: 52/F Req #: [id number] Adm Physician: Ordered by: POLO MARY MD Report #: [id number] Location: ER Room/Bed: Procedure: [id number] DX/CHEST 2 VIEWS Exam Date: 05/15/17 Exam Time: 2032 REPORT STATUS: Signed EXAMINATION: CHEST 2 VIEWS INDICATION: COMPARISON: None FINDINGS: PA and lateral views TUBES and SHAMIKA ES: None. LUNGS: Lungs are well inflated. There is no evidence of pneumo twila or pulmonary edema. PLEURA: No pleural effusion or pneumothorax. HEART AND MEDIASTINUM: The cardiomediastinal silhouette is unremarkable. BONES AND SOFT TISSUES: No acute osseous lesion. Old left sixth rib fractu re. Soft tissues are unremarkable. UPPER ABDOMEN: No free air under the d iaphragm. IMPRESSION: No acute thoracic abnormality. Signed by: DR. Beto Brewer MD on 05/15/2017 8:45 PM Dictated By: BETO BREWER MD 44 Transcribed By: STACEY on 05/15/172044 COPY TO: POLO MARY MD
[2020-01-18 18:17] LABS: BASOPHILS % 0.1 % (0.0-1.0); HEMATOCRIT 43.3 % (34.2-44.1); HEMOGLOBIN 14.7 g/dL (12.0-16.0); LYMPHOCYTES # (AUTO) 0.8 (1.0-3.2); LYMPHOCYTES % 8.9 % (18.0-39.1); MEAN CORPUSCULAR HGB CONC 33.9 g/dL (31-35); MEAN CORPUSCULAR VOLUME 94.1 fL (81-99); MONOCYTES # (AUTO) 0.1 (0.2-0.8); MONOCYTES % 1.4 % (4.4-11.3); NEUTROPHILS # (AUTO) 8.2 (2.1-6.9); NEUTROPHILS % 89.2 % (38.7-80.0); PLATELET COUNT 309 x10e3/uL (140-360); RED CELL DISTRIBUTION WIDTH 13.3 % (11.7-14.4)
[2020-01-18 18:31] LABS: ALANINE AMINOTRANSFERASE 9 IU/L (0-55); ALBUMIN 4.4 g/dL (3.5-5.0); ALBUMIN/GLOBULIN RATIO 1.2 (0.8-2.0); ALKALINE PHOSPHATASE 73 IU/L (40-150); ANION GAP 14.8 mmol/L (8-16); BLOOD UREA NITROGEN 15 mg/dL (7-26); BUN/CREATININE RATIO 20 (6-25); CARBON DIOXIDE 24 mmol/L (22-29); CHLORIDE 108 mmol/L (98-107); CREATININE, SERUM 0.74 mg/dL (0.57-1.11); EST GLOMERULAR FILTRATION RATE > 60 ML/MIN (60-); GLUCOSE 127 mg/dL (74-118); POTASSIUM 3.8 mmol/L (3.5-5.1); SODIUM 143 mmol/L (136-145)
[2020-01-18 19:17] LABS: CLARITY,URINE SL CLOUDY (CLEAR); COLOR,URINE YELLOW (YELLOW); LEUKOCYTE ESTERASE ,URINE NEGATIVE (NEGATIVE); NITRITE,URINE NEGATIVE (NEGATIVE); PROTEIN,URINE DIPSTICK NEGATIVE (NEGATIVE)
[2020-01-18 19:18] LABS: BILIRUBIN,URINE SMALL (NEGATIVE); KETONES,URINE 2+ (NEGATIVE); URINE UROBILINOGEN 0.2 mg/dL (0.2 - 1)
[2020-01-18 19:29] LABS: BACTERIA,URINE MANY /HPF; EPITHELIAL CELLS,URINE MODERATE /LPF; RBC,URINE 0-5 /HPF (0-5)
[2020-01-18 20:51] VITALS: BP 101/58
--- NOTE | 2020-01-22 09:04 | Emergency Department Note ---
History of Present Illnes History of Present Illness Chief Complaint: Abdominal Complaints History of Present Illness This is a 54 year old female Patient in from home with complaints of epigastric abdominal pain, nausea and vomiting that started early this morning. Patient reports that she tried to take some medications that she had from her last visit (Bentyl, and zofran) and she states that she threw them right back up. Patient reports that the last time she had pain like this they diagnosed her with food poisoning and was admitted for a couple of days and discharged. Patient reports that her pain was 10/10 but was given fentanyl on the ambulance and her pain is now resolved. Historian: Patient Arrival Mode: [employer] Teacher Required: No Onset (how long ago): day(s) (1) Location: Epigastric Quality: Dull Radiation: Reports non-radiation Severity: mild Onset quality: gradual Duration (how long): day(s) (1) Timing of current episode: constant Progression: unchanged Chronicity: recurrent Context: Denies recent illness, Denies recent surgery Relieving factors: none Exacerbating factors: none Associated symptoms: Reports denies other symptoms Treatments prior to arrival: none Past Medical/Family History Physician Review I have reviewed the patient's past medical and family history. Any updates have been documented here. Past Medical History Recent Fever: No Clinical Suspicion of Infectio: No New/Unexplained Change in Ment: No Other Medical History: CHRONIC BACK PAIN Past Surgical History: Other Surgery: X3 Social History Smoking Cessation: Never Smoker Counseling Performed: No Alcohol Use: None Any Illegal Drug Use: No Physically hurt or threatened: No Other Last Tetanus: UNKNOWN Any Pre-Existing Lines (PICC,: No Review of Systems Review of Systems Constitutional: Reports no symptoms EENTM: Reports no symptoms Cardiovascular: Reports no symptoms Respiratory: Reports no symptoms Gastrointestinal: Reports as per HPI, Reports abdominal pain Genitourinary: Reports no symptoms Musculoskeletal: Reports no symptoms Integumentary: Reports no symptoms Neurological: Reports no symptoms Psychological: Reports no symptoms Endocrine: Reports no symptoms Hematological/Lymphatic: Reports no symptoms Physical Exam Related Data Allergies: Coded Allergies: No Known Allergies (Unverified , 11/20/12) Triage Vital Signs Vital Signs Date Time Temp Pulse Resp B/P (MAP) Pulse Ox O2 Delivery O2 Flow Rate FiO2 01/18/20 17:20 97.8 77 17 100/56 100 Room Air Vital signs reviewed: Yes Physical Exam CONSTITUTIONAL Constitutional: Present well-developed, Present well-nourished HENT HENT: Present normocephalic, Present atraumatic, Present oropharynx clear/moist, Present nose normal HENT L/R: Present left ext ear normal, Present right ext ear normal EYES Eyes: Reports PERRL, Reports conjunctivae normal NECK Neck: Present ROM normal PULMONARY Pulmonary: Present effort normal, Present breath sounds normal CARDIOVASCULAR Cardiovascular: Present regular rhythm, Present heart sounds normal, Present capillary refill normal, Present normal rate GASTROINTESTINAL Abdominal: Present soft, Present nontender, Present bowel sounds normal GENITOURINARY Genitourinary: Present exam deferred SKIN Skin: Present warm, Present dry MUSCULOSKELETAL Musculoskeletal: Present ROM normal NEUROLOGICAL Neurological: Present alert, Present oriented x 3, Present no gross motor or sensory deficits PSYCHOLOGICAL Psychological: Present mood/affect normal, Present judgement normal Results Laboratory Result Diagram: 01/18/20172901/18/201729 Lab results reviewed: Yes Assessment & Plan Medical Decision Making MDM 54 y.o f presents for abd pain. Exam benign, VSS, within acceptable limits. Initial diff includes cholecystitis vs PUD vs gastroenteritis. Labs benign, doubt emergent process. Patient feels better on re-eval. Will DC with instructions to f/u w/ M Elsi in clinic. appropriate for DC. Assessment & Plan Final Impression: (1) Abdominal pain Depart Disposition: HOME, SELF-CARE Last Vital Signs Date Time Temp Pulse Resp B/P (MAP) Pulse Ox O2 Delivery O2 Flow Rate FiO2 01/18/20 20:51 72 16 96 01/18/20 20:41 115/62 Room Air 01/18/20 17:20 97.8 PAM PERAZA MD Jan 22, 2020 09:04
== END 2020-01-18 20:53 | disposition home or self-care (01) ==
LOC: ER 17:43
DX: R10.13 Epigastric pain (principal); R11.2 Nausea with vomiting, unspecified; M54.9 Dorsalgia, unspecified; G89.29 Other chronic pain
CPT/HCPCS: 36415; 80053; 81001; 85025; 99284

== ENCOUNTER 2020-12-31 13:06 | Emergency (ER) | payer SELFPAY ==
[~2020-12-31] VITALS: Ht 162.6 cm; Wt 54.4 kg
== END 2020-12-31 14:53 | disposition home or self-care (01) ==
LOC: ER 13:34
DX: T18.9XXA Foreign body of alimentary tract, part unspecified, initial encounter (principal); M54.9 Dorsalgia, unspecified; G89.29 Other chronic pain
CPT/HCPCS: 99283

== ENCOUNTER → 2022-10-16 | Outpatient (CLI) | payer OTHER | LOC: US 09:31 | PROVIDERS: ATTEND Internal Medicine | DX: E05.90 Thyrotoxicosis, unspecified without thyrotoxic crisis or storm (principal) | CPT/HCPCS: 76536 ==